=== PATIENT | female | born 1985 | race Two or more races ===

== ENCOUNTER 2016-09-14 15:50 | Inpatient (IN) | payer OTHER ==
--- NOTE | 2016-09-14 16:14 | ER Document Report ---
ED Medical Screen (RME) - General Stated Complaint: CHEST PAINS Time seen by provider: 16:12 Mode of Arrival: Ambulatory Information source: Patient Notes: 30-year-old female presents to ED with shortness of breath cough and chest pain started 3 days ago and is progressively getting worse. She is 16 weeks . States she has a history of bronchitis in the past Dr. Arce requested the EKG be repeated 15 minutes after the first one EKG was ordered 1620. I have greeted and performed a rapid initial assessment of this patient. A comprehensive ED assessment and evaluation of the patient, analysis of test results and completion of medical decision making process will be conducted by an additional ED providers. - Related Data Allergies/Adverse Reactions: No Known Allergies Allergy (Unverified 09/14/16 16:10) Physical Exam - Vital signs Vitals: Temp Pulse Resp BP Pulse Ox 97.6 F 101 H 24 H 94/58 L 99 09/14/16 16:09 09/14/16 16:09 09/14/16 16:09 09/14/16 16:09 09/14/16 16:09 Course - Vital Signs Vital signs: Temp Pulse Resp BP Pulse Ox 97.6 F 101 H 24 H 94/58 L 99 09/14/16 16:09 09/14/16 16:09 09/14/16 16:09 09/14/16 16:09 09/14/16 16:09
[2016-09-14 16:43] LABS: ABSOLUTE BASOPHILS # (AUTO) 0.1 10^3/uL (0.0-0.2); ABSOLUTE EOSINOPHILS # (AUTO) 0.4 10^3/uL (0.0-0.6); ABSOLUTE LYMPHOCYTES (AUTO) 2.5 10^3/uL (0.5-4.7); ABSOLUTE MONOCYTES (AUTO) 0.7 10^3/uL (0.1-1.4); ABSOLUTE NEUT (AUTO) 8.4 10^3/uL (1.7-8.2); BASOPHILS % (AUTO) 0.5 % (0-2); EOSINOPHILS % (AUTO) 3.2 % (0-6); HEMATOCRIT 35.2 % (36.0-47.0); HEMOGLOBIN 11.9 g/dL (12.0-15.5); HGB HCT DIFFERENCE 0.5; LYMPHOCYTES % (AUTO) 20.5 % (13-45); MEAN CORPUSCULAR HEMOGLOBIN 27.6 pg (27.0-33.4); MEAN CORPUSCULAR HGB CONC 33.7 g/dL (32.0-36.0); MEAN CORPUSCULAR VOLUME 82 fl (80-97); MONOCYTES % (AUTO) 5.5 % (3-13); SEGMENTED NEUTROPHILS % (AUTO) 70.3 % (42-78)
[2016-09-14 17:01] LABS: ALANINE AMINOTRANSFERASE 16 U/L (9-52); ALBUMIN 3.8 g/dL (3.5-5.0); ALKALINE PHOSPHATASE 79 U/L (38-126); ANION GAP 11 (5-19); ASPARTATE AMINO TRANSFERASE 14 U/L (14-36); BILIRUBIN,TOTAL 0.3 mg/dL (0.2-1.3); BLOOD UREA NITROGEN 6 mg/dL (7-20); CALCIUM 9.6 mg/dL (8.4-10.2); CARBON DIOXIDE 21 mmol/L (22-30); CHLORIDE 107 mmol/L (98-107); CREATINE KINASE 34 U/L (30-135); CREATININE RESULT 0.47 mg/dL (0.52-1.25); GLUCOSE 84 mg/dL (75-110); MAGNESIUM 1.6 mg/dL (1.6-2.3); POTASSIUM 3.7 mmol/L (3.6-5.0); SODIUM 139.4 mmol/L (137-145); TOTAL PROTEIN 7.3 g/dL (6.3-8.2)
[2016-09-14] MEDS ORDERED: ALBUTEROL SULFATE 0.083% NEB 2.5 MG/3 ML AMPUL NEB ONE ×2 (17:25→17:27)
[2016-09-14] MEDS ORDERED: LIDOCAINE 1% INJ-PF (10 MG/ML) 30 ML SDV ONE (17:25)
[2016-09-14] MEDS ORDERED: IPRATROPIUM BROMIDE 0.02% NEB 0.5 MG/2.5 ML AMPUL NEB ONE (17:26)
[2016-09-14] MEDS ORDERED: MAGNESIUM SULFATE/D5W 1 GM/100 ML RTUPB IV ONE (17:26)
[2016-09-14] MEDS ORDERED: MAGNESIUM SULFATE/D5W 100 ML IV SCH (17:30)
[2016-09-14] MEDS ORDERED: IPRATROPIUM/ALBUTEROL 0.5-2.5 MG/3 ML AMPUL NEB ONE (17:31)
[2016-09-14 17:32] LABS: CREATINE KINASE MB < 0.22 ng/mL (<4.55); TROPONIN I < 0.012 ng/mL
[2016-09-14] MEDS ORDERED: INSULIN REG, HUMAN 100 UNIT/ML 3 ML VIAL (PYX) ONE (17:34)
--- NOTE | 2016-09-14 17:42 | ER Document Report ---
ED General - General Mode of Arrival: Ambulatory TRAVEL OUTSIDE OF THE [place] IN LAST 30 DAYS: No COUNTRY TRAVELED TO/FROM: [place] - HPI Onset: Other - see HPI note Associated symptoms: Shortness of breath, Other - cough Exacerbated by: Coughing <JULITA GUPTA - Last Filed: 09/14/16 20:37> <KEVIN VINCENT - Last Filed: 09/14/16 21:23> - General Chief Complaint: Shortness Of Breath Stated Complaint: CHEST PAINS Notes: Patient is a 30 year old female presenting to the emergency department for respiratory distress. Patient states she is 16 weeks and had an ultrasound to confirm this in [place], where she is from. Patient states she has a history of some mild asthma that she has never had an serious complications with; she states she only has to use her inhalers every once in a while. Patient also has a cough and pain that radiates from her chest into her back. Patient states it hurts to breath and causes her to cough when she does so. Patient states that her symptoms started about 3-4 days prior. Patient arrived here from [place] about 2 weeks ago on 09/02/16. Patient denies any history of blood clots. Patient had a baby 5 months ago and is 16 weeks . Patient has no known allergies. (JULITA GUPTA) - Related Data Allergies/Adverse Reactions: No Known Allergies Allergy (Unverified 09/14/16 16:10) Past Medical History - General Information source: Patient - Social History Smoking Status: Never Smoker Cigarette use (# per day): No Chew tobacco use (# tins/day): No Frequency of alcohol use: None Drug Abuse: None Lives with: Family Family History: None Patient has suicidal ideation: No Patient has homicidal ideation: No Pulmonary Medical History: Reports: Hx Asthma - borderline Surgical Hx: Negative - Immunizations Hx Diphtheria, Pertussis, Tetanus Vaccination: Yes <JULITA GUPTA - Last Filed: 09/14/16 20:37> Review of Systems - Review of Systems Constitutional: No symptoms reported EENT: No symptoms reported Cardiovascular: See HPI, Chest pain Respiratory: See HPI, Cough, Short of breath Gastrointestinal: No symptoms reported Genitourinary: No symptoms reported Female Genitourinary: No symptoms reported Musculoskeletal: See HPI, Back pain Skin: No symptoms reported Hematologic/Lymphatic: No symptoms reported Neurological/Psychological: No symptoms reported -: Yes All other systems reviewed and negative <JULITA GUPTA - Last Filed: 09/14/16 20:37> Physical Exam - Vital signs Interpretation: Tachycardic - General General appearance: Other - appears uncomfortable In distress: Severe - HEENT Head: Normocephalic, Atraumatic Eyes: Normal Pupils: PERRL Mucous membranes: Moist - Respiratory Respiratory status: Respiratory distress - severe respiratory distress Chest status: Nontender Breath sounds: Decreased air movement, Productive cough - repetitive cough to the point of choking, Wheezing - faint expository wheezing Chest palpation: Normal - Cardiovascular Rhythm: Regular Heart sounds: Normal auscultation Murmur: No - Abdominal Inspection: Normal, Gravid female Distension: No distension Bowel sounds: Normal Tenderness: Nontender Organomegaly: No organomegaly - Back Back: Normal, Nontender - Extremities General upper extremity: Normal inspection, Normal ROM, Normal strength General lower extremity: Normal inspection, Normal ROM, Normal strength - Neurological Neuro grossly intact: Yes Cognition: Normal Orientation: AAOx4 Deejay Coma Scale Eye Opening: Spontaneous Caldwell Coma Scale Verbal: Oriented Caldwell Coma Scale Motor: Obeys Commands Caldwell Coma Scale Total: 15 Speech: Normal - Psychological Associated symptoms: Normal affect, Normal mood - Skin Skin Temperature: Warm Skin Moisture: Dry <JULITA GUPTA - Last Filed: 09/14/16 20:37> Course - Laboratory Result Diagrams: 09/14/16 16:20 09/14/16 16:20 - Consults Dr. Liu Time consulted: 17:43 Consulted provider: will come to ER Dr. Burnett PROGRAM SUPPORT SPECIALIST Time consulted: 18:01 <JULITA GUPTA - Last Filed: 09/14/16 20:37> - Laboratory Result Diagrams: 09/14/16 16:20 09/14/16 16:20 <KEVIN VINCENT - Last Filed: 09/14/16 21:23> - Re-evaluation Re-evalutation: 09/14/16 18:03 I personally performed the services described in the documentation, reviewed and edited the documentation which was dictated to my scribe in my presence, and it accurately records my words and actions. Patient presents straight back from the lobby with shortness of breath respiratory distress chest pain and abnormal EKG. Initial EKG obtained in the triage area shows ischemic changes anteriorly Dr. Martin asked for repeat EKG and 15 minutes repeat EKG shows the same. Patient at bedside is in severe respiratory distress tachypnea not moving a lot of air with expiratory wheezes. Coughing to the point where she was choking gagging. Concerned about a pulmonary embolus sent her over for CT PE study which is pending at this time gave her albuterol with lidocaine which significantly helped her coughing. Toxic copy of the EKG to Dr. Rodriguez who is on-call he agreed EKG is abnormal and concerning for ischemia. Patient denies any history of that. Spoke with the patient's sister who came into the room and was very aggressive and argumentative asking why we were not addressing the baby at this point. According to the patient she is visiting from [place] an ultrasound 1 month ago that 16 weeks the patient has no abdominal pain no vaginal bleeding no cramping and no emergent need to assess the child. I attempted to explain that we have to take care of the patient urgently and because the child is not 28 weeks we have to do what is necessary to stabilize the patient she is very upset about this morning so I did not do an ultrasound on the patient. Explained to her that I would not send a severe respiratory distress patient for ultrasound at 16 weeks . At this point I contacted the RUG CLEANER physician Dr. Suazo who agreed 100% better to treat the patient with whatever means necessary for the respiratory distress rule out pulmonary embolism abnormal EKG and he agrees at this point would not do any intervention to assess the baby. I'm going go ahead and order a quantitative beta hCG at this point. 09/14/16 21:21 Patient with significant improvement in breathing Dr. Hanson saw her at the bedside reviewed the EKGs and the echocardiogram which was nonacute he said that she needs be admitted with consult to him negative troponin no chest pain or shortness of breath patient is 100% improved. I talked to Dr. Suazo he did not feel from an RUG CLEANER standpoint that the patient needed to be transferred at this point and was available for consultation. Patient was significant improvement at the bedside and admitted in stable condition. (KEVIN VINCENT) - Vital Signs Vital signs: Temp Pulse Resp BP Pulse Ox 97.6 F 101 H 20 101/63 100 09/14/16 16:09 09/14/16 16:09 09/14/16 20:01 09/14/16 20:00 09/14/16 20:01 - Laboratory Laboratory results interpreted by me: 09/14/16 09/14/16 09/14/16 16:20 16:20 16:20 WBC 12.0 H Hgb 11.9 L Hct 35.2 L Absolute Neutrophils 8.4 H Carbonic Acid ABG pCO2 ABG HCO3 ABG Total CO2 Carbon Dioxide 21 L BUN 6 L Creatinine 0.47 L Beta HCG, Quant 67190.00 H 09/14/16 17:45 WBC Hgb Hct Absolute Neutrophils Carbonic Acid 0.76 L ABG pCO2 25.2 L ABG HCO3 17.0 L ABG Total CO2 17.8 L Carbon Dioxide BUN Creatinine Beta HCG, Quant - Consults Dr. Liu Reason for consultation: 09/14/16 17:[address] Liu to discuss EKG abnormalities. 09/14/16 20:[address] Liu to discuss more recommendations about patient and patient's status. (JULITA GUPTA) Dr. Burnett PROGRAM SUPPORT SPECIALIST Reason for consultation: 09/14/16 18:[address] Burnett to discuss patient and fetus care. Dr. Burnett confirms that the priority treatment is to the patient and not the fetus. (JULITA GUPTA) Critical Care Note - Critical Care Note Total time excluding time spent on procedures (mins): 75 <KEVIN VINCENT - Last Filed: 09/14/16 21:23> Discharge <JULITA GUPTA - Last Filed: 09/14/16 20:37> - Discharge Admitting Provider: Hospitalist Unit Admitted: Telemetry <KEVIN VINCENT - Last Filed: 09/14/16 21:23> - Discharge Clinical Impression: acute severe respiratory distress, ASTHMA ACUTE ATTACK, abnormal EKG, Condition: Stable Disposition: ADMITTED INPATIENT Scribe Documentation - Scribe Written by Scribscotty:: Julita Gupta 09/14/16 19:40 acting as scribe for :: Colin <JULITA GUPTA - Last Filed: 09/14/16 20:37>
[2016-09-14 18:03] LABS: ARTERIAL BLOOD BASE EXCESS -5.5 mmol/L; ARTERIAL BLOOD O2 SATURATION 96.7 % (94-98)
[2016-09-14] MEDS ORDERED: METHYLPREDNISOLONE INJ 125 MG/2 ML SDV IV ONE (18:12)
--- NOTE | 2016-09-14 20:31 | PDOC CONSULTATION ---
Consultation Consult Date: 09/14/16 Attending physician:: KEVIN VINCENT Consult reason:: Abnormal EKG History of Present Illness Patient complains of: Shortness of breath History of Present Illness: JIMBO LISA is a 30 year old female, was seen in the emergency department at the request of ER physician because of abnormal EKG. There are no prior EKG for comparison. Patient denied any prior history of heart problem, congestive heart failure, congenital heart disease. Patient has been visiting from [place]. She did complain of some bronchitis type symptoms over the last few days with cough and slight sputum production. Patient denied any history of asthma but has occasional wheezing. Patient currently 16 weeks . A CTA was negative for pulmonary embolism and any acute lung finding. Initial cardiac enzyme has been negative. Past Medical History Pulmonary Medical History: Reports: Asthma - borderline Social History Information Source: Patient Lives with: Family Smoking Status: Never Smoker - Advance Directive Resuscitation Status: Full Code Family History Family History: None Parental Family History Reviewed: Yes Children Family History Reviewed: Yes Sibling(s) Family History Reviewed.: Yes - Negative for family history of premature coronary artery disease or sudden cardiac Medication/Allergy Home Medications: Albuterol Sulfate [Proair HFA] 2 puff IH QIDP PRN 09/14/16 Vit/Iron Fumarate/FA [ Tablet] 1 each PO DAILY 09/14/16 Allergies/Adverse Reactions: No Known Allergies Allergy (Unverified 09/14/16 16:10) Review of Systems Review of Systems: Please see history of present illness and past medical history as wall. Constitutional: No fever or chills reported. Head : No recent chronic headaches, recent head injury. Eyes: No recent eye pain, diplopia, redness, discharge, acute visual changes. Ears: No recent chronic ear pain, acute hearing loss, ear discharge. Oral cavity: No recent ulcerations, bleeding, oral cavity discomfort. Neck: No recent acute neck pain reported. Hematologic: No recent easy bruising or bleeding or hematologic malignancy reported. Lymphatic: No recent lymphatic malignancy, chronic lymphadenopathy reported yet Cardiovascular system review: See history of present illness. Respiratory system review: Recent cough with slight sputum production and wheezing but no hemoptysis, blood clots in the lungs reported. Mild Shortness of breath on exertion Gastrointestinal system review: Negative for any recent acute or chronic abdominal pain, hematemesis, melena, recent change in bowel habits. Genitourinary system review: No recent acute or chronic hematuria, flank pain, UTI etc. reported. Skin system review: Negative for any recent abnormal bruising, no rash, no pruritus reported. Neurologic: No prior history of strokes, mini strokes, seizure disorder. Psychologic: No history of major psychosis or major depression reported. Musculoskeletal: Minor aches and pains reported. No acute joint swelling reported. Endocrine: No recent polyuria, polydipsia, recent heat or cold intolerance. Physical Exam Vital Signs: Temp Pulse Resp BP Pulse Ox 97.6 F 101 H 17 107/64 100 09/14/16 16:09 09/14/16 16:09 09/14/16 19:01 09/14/16 19:00 09/14/16 19:01 Intake & Output 09/13/16 09/14/16 09/15/16 06:59 06:59 06:59 Weight 58.7 kg Exam: GENERAL: well-nourished and in no acute distress. Alert and oriented x3 HEAD: Atraumatic, normocephalic. EYES: Pupils equal round and reactive to light, extraocular movements intact, sclera anicteric, conjunctiva are normal. ENT: TMs normal, nares patent, oropharynx clear without exudates. Moist mucous membranes. No oral ulcerations or bleeding gums noted NECK: supple without lymphadenopathy. Trachea is central. No cervical or axillary lymphadenopathy noted. Carotids are 2+, JVD WNL LUNGS: Respiration seems nonlabored, no significant accessory muscle action noted. Mild bilateral wheezes rales or rhonchi noted. No significant dullness noted on percussion. CHEST: Palpation of the chest wall shows no significant chest wall tenderness. No other significant abnormalities noted. HEART: [place] SENIOR ACCOUNT DIRECTOR, No PSH, 1/6 CRYSTAL aortic area, 1/6 vazquez systolic murmur mitral area, no rubs, no gallops. ABDOMEN: Soft, no significant tenderness appreciated, normoactive bowel sounds. No guarding, no rebound. No rigidity noted . No masses appreciated. EXTREMITIES: Pedal pulses are 1-2+, no calf tenderness noted. No clubbing or cyanosis.trace to 1+ pedal edema noted NEUROLOGICAL: Focused neurological exam showed no significant neurologic deficit. Normal speech, no focal weakness appreciated. PSYCH: Normal mood, normal affect. Judgment and insight within normal limits. SKIN: No significant ecchymosis, rash, ulcerations or signs of pruritus noted. MUSCULOSKELETAL EXAM: No significant joint swelling noted. Results Laboratory Results: 09/14/16 16:20 09/14/16 16:20 09/14/16 09/14/16 09/14/16 16:20 16:20 17:45 WBC 12.0 H RBC 4.30 Hgb 11.9 L Hct 35.2 L MCV 82 MCH 27.6 MCHC 33.7 RDW 14.0 Plt Count 300 Seg Neutrophils % 70.3 Lymphocytes % 20.5 Monocytes % 5.5 Eosinophils % 3.2 Basophils % 0.5 Absolute Neutrophils 8.4 H Absolute Lymphocytes 2.5 Absolute Monocytes 0.7 Absolute Eosinophils 0.4 Absolute Basophils 0.1 Carbonic Acid 0.76 L HCO3/H2CO3 Ratio 22:1 ABG pH 7.45 ABG pCO2 25.2 L ABG pO2 82.2 ABG HCO3 17.0 L ABG O2 Saturation 96.7 ABG Base Excess -5.5 FiO2 ROOM AIR Sodium 139.4 Potassium 3.7 Chloride 107 Carbon Dioxide 21 L Anion Gap 11 BUN 6 L Creatinine 0.47 L Est GFR ( Amer) > 60 Est GFR (Non-Af Amer) > 60 Glucose 84 Calcium 9.6 Magnesium 1.6 Total Bilirubin 0.3 AST 14 ALT 16 Alkaline Phosphatase 79 Total Protein 7.3 Albumin 3.8 09/14/16 09/14/16 16:20 16:20 Creatine Kinase 34 CK-MB (CK-2) < 0.22 Troponin I < 0.012 EKG Comments: Sinus rhythm noted, nonspecific ST T wave changes noted in lead 2 and aVF and precordial lead Impressions: Chest X-Ray 09/14/16 16:11 IMPRESSION: NO SIGNIFICANT RADIOGRAPHIC FINDING IN THE CHEST. Chest/Abdomen CTA 09/14/16 17:24 IMPRESSION: NORMAL CTA OF THE CHEST. NO PULMONARY EMBOLI. Assessment & Plan - Diagnosis (1) Asthma exacerbation Is this a current diagnosis for this admission?: Yes (2) Abnormal EKG Is this a current diagnosis for this admission?: Yes (3) Qualifiers: Weeks of gestation: 16 weeks Qualified Code(s): Z3A.16 - 16 weeks gestation of Is this a current diagnosis for this admission?: Yes - Notes Notes: Patient noted to have abnormal EKG, this is some concerning but pretest probability of anything cardiac going on is still low. Feel that EKG abnormality could be just persistence of juvenile T-wave changes. At this point recommend admission for observation, cardiac enzymes, stat echocardiogram. Should patient's cardiac enzymes be significantly elevated, especially troponin I, may consider transfer to tertiary care. At this point recommend aggressive treatment of asthma exacerbation. Patient also 16 weeks . Need to be cautious about medications to avoid any teratogenic effects. - Time Time Spent: 30 to 50 Minutes - CODE STATUS was discussed, patient remains full code. Surrogate decision-maker patient's sister at this point. Multiple medical problems were addressed.More than 50% of the time spent coordinating care, discussing management plans with involved caregivers. Management plans discussed with involved personnels. Medical decision making was of moderate complexity. Medications reviewed and adjusted accordingly: Yes
[2016-09-14] MEDS ORDERED: IPRATROPIUM/ALBUTEROL 0.5-2.5 MG/3 ML AMPUL NEB PRN (21:10)
[2016-09-14] MEDS ORDERED: MAGNESIUM HYDROXIDE SUSP 30 ML UDCUP PO PRN (21:12)
[2016-09-14] MEDS ORDERED: ACETAMINOPHEN 325 MG TABLET PO PRN (21:12)
[2016-09-14] MEDS: METHYLPREDNISOLONE INJ 125 MG/2 ML SDV IV SCH (22:30)
[2016-09-14] MEDS: FLUTICASONE NASAL SPRAY 50 MCG/SPRY 120 SPRAY/16 GM NASL SCH (22:30)
[2016-09-14] MEDS ORDERED: LORATADINE 10 MG TABLET PO ONE (22:30)
[2016-09-14] MEDS: NORMAL SALINE 1000 ML 1,000 ML IV SCH (22:30)
[2016-09-15] MEDS: IPRATROPIUM/ALBUTEROL 0.5-2.5 MG/3 ML AMPUL NEB SCH ×2 (01:51→07:48)
[2016-09-15] MEDS: NORMAL SALINE 1000 ML 1,000 ML IV SCH (04:23)
--- NOTE | 2016-09-15 05:14 | PDOC H&P ---
History of Present Illness Admission Date/PCP: 09/14/16 21:12 Patient complains of: Shortness of breath and wheeze History of Present Illness: JIMBO LISA is a 30 year old female with a past medical history of mild persistent exercise-induced asthma and 16 week . Patient is visiting [place] from [place] and is had 4 days of increasing asthma symptoms of shortness of breath with cough and wheezing minimally alleviated by albuterol inhaler using up to 16 times in the last 12 hours. In the emergency room she' s found to have an EKG with T-wave inversion, She feels somewhat better, denies rhinorrhea, fever or GERD and otherwise feels well. Past Medical History Cardiac Medical History: Reports: None Pulmonary Medical History: Reports: Asthma - borderline, Bronchitis EENT Medical History: Reports: None Neurological Medical History: Reports: None Endocrine Medical History: Reports: None Renal/ Medical History: Reports: None Malignancy Medical History: Reports: None GI Medical History: Reports: None Musculoskeltal Medical History: Reports: None Psychiatric Medical History: Reports: None Traumatic Medical History: Reports: None Hematology: Reports: None Infectious Medical History: Reports: None Past Surgical History Past Surgical History: Reports: None Social History Information Source: Patient Lives with: Family Smoking Status: Former Smoker - Advance Directive Resuscitation Status: Full Code Family History Family History: Other Parental Family History Reviewed: Yes Children Family History Reviewed: Yes Sibling(s) Family History Reviewed.: Yes Medication/Allergy Home Medications: Albuterol Sulfate [Proair HFA] 2 puff IH QIDP PRN 09/14/16 Vit/Iron Fumarate/FA [ Tablet] 1 each PO DAILY 09/14/16 Allergies/Adverse Reactions: No Known Allergies Allergy (Unverified 09/14/16 16:10) Review of Systems Constitutional: ABSENT: chills, fever(s), headache(s), weight gain, weight loss Eyes: ABSENT: visual disturbances Ears: ABSENT: hearing changes Cardiovascular: ABSENT: chest pain, dyspnea on exertion, edema, orthropnea, palpitations Respiratory: ABSENT: cough, hemoptysis Gastrointestinal: ABSENT: abdominal pain, constipation, diarrhea, hematemesis, hematochezia, nausea, vomiting Genitourinary: ABSENT: dysuria, hematuria Musculoskeletal: ABSENT: joint swelling Integumentary: ABSENT: rash, wounds Neurological: ABSENT: abnormal gait, abnormal speech, confusion, dizziness, focal weakness, syncope Psychiatric: ABSENT: anxiety, depression, homidical ideation, suicidal ideation Endocrine: ABSENT: cold intolerance, heat intolerance, polydipsia, polyuria Hematologic/Lymphatic: ABSENT: easy bleeding, easy bruising Physical Exam Vital Signs: Temp Pulse Resp BP Pulse Ox 98.3 F 111 H 18 100/51 L 95 09/15/16 03:09 09/15/16 03:09 09/15/16 03:09 09/15/16 03:09 09/15/16 03:09 Intake & Output 09/13/16 09/14/16 09/15/16 11:59 11:59 11:59 Weight 59.2 kg General appearance: PRESENT: no acute distress, well-developed, well-nourished Head exam: PRESENT: atraumatic, normocephalic Eye exam: PRESENT: conjunctiva pink, EOMI, PERRLA. ABSENT: scleral icterus Ear exam: PRESENT: normal external ear exam Mouth exam: PRESENT: moist, tongue midline Neck exam: ABSENT: carotid bruit, JVD, lymphadenopathy, thyromegaly Respiratory exam: PRESENT: accessory muscle use, symmetrical, tachypnea, wheezes. ABSENT: rales, rhonchi, stridor Cardiovascular exam: PRESENT: RRR. ABSENT: diastolic murmur, rubs, systolic murmur Pulses: PRESENT: normal dorsalis pedis pul Vascular exam: PRESENT: normal capillary refill GI/Abdominal exam: PRESENT: normal bowel sounds, soft. ABSENT: distended, guarding, mass, organolmegaly, rebound, tenderness Rectal exam: PRESENT: deferred Extremities exam: PRESENT: full ROM. ABSENT: calf tenderness, clubbing, pedal edema Neurological exam: PRESENT: alert, awake, oriented to person, oriented to place , oriented to time, oriented to situation, CN II-XII grossly intact. ABSENT: motor sensory deficit Psychiatric exam: PRESENT: appropriate affect, normal mood. ABSENT: homicidal ideation, suicidal ideation Skin exam: PRESENT: dry, intact, warm. ABSENT: cyanosis, rash Results Impressions: Chest X-Ray 09/14/16 16:11 IMPRESSION: NO SIGNIFICANT RADIOGRAPHIC FINDING IN THE CHEST. Chest/Abdomen CTA 09/14/16 17:24 IMPRESSION: NORMAL CTA OF THE CHEST. NO PULMONARY EMBOLI. Obstetrics Ultrasound 09/14/16 19:28 IMPRESSION: LIVING INTRAUTERINE . ESTIMATED GESTATIONAL AGE:13 WEEK 3 DAY. Trimester of : Second trimester - 13 weeks 1 day to 27 weeks 6 days. Assessment & Plan - Diagnosis (1) Asthma exacerbation Is this a current diagnosis for this admission?: YesPlan: Continue albuterol Atrovent, Solu-Medrol and when necessary magnesium, evaluate for peak flow ambulating road test prior to discharge (2) Abnormal EKG Is this a current diagnosis for this admission?: YesPlan: Possibly congenital with abnormal variant otherwise possibly secondary to excessive albuterol consult cardiology - Time Time Spent: 30 to 50 Minutes
--- NOTE | 2016-09-15 05:39 | EKG REPORT ---
SEVERITY:- ABNORMAL ECG - SINUS TACHYCARDIA ABNORMAL T, CONSIDER ISCHEMIA, DIFFUSE LEADS BORDERLINE PROLONGED QT INTERVAL : Confirmed by: Ledy Iglesias MD 15-Sep-2016 05:39:01
--- NOTE | 2016-09-15 05:39 | EKG REPORT ---
SEVERITY:- ABNORMAL ECG - SINUS RHYTHM LOW VOLTAGE IN FRONTAL LEADS ABNORMAL T, CONSIDER ISCHEMIA, DIFFUSE LEADS : Confirmed by: Ledy Iglesias MD 15-Sep-2016 05:39:11
[2016-09-15 06:08] LABS: ABSOLUTE LYMPHOCYTES (AUTO) 0.8 10^3/uL (0.5-4.7); ABSOLUTE MONOCYTES (AUTO) 0.1 10^3/uL (0.1-1.4); ABSOLUTE NEUT (AUTO) 9.3 10^3/uL (1.7-8.2); BASOPHILS % (AUTO) 0.1 % (0-2); HEMATOCRIT 33.3 % (36.0-47.0); HEMOGLOBIN 11.1 g/dL (12.0-15.5); LYMPHOCYTES % (AUTO) 7.8 % (13-45); MEAN CORPUSCULAR HEMOGLOBIN 27.5 pg (27.0-33.4); MEAN CORPUSCULAR HGB CONC 33.4 g/dL (32.0-36.0); MEAN CORPUSCULAR VOLUME 82 fl (80-97); MONOCYTES % (AUTO) 0.5 % (3-13); RED BLOOD COUNT 4.04 10^6/uL (3.72-5.28); RED CELL DISTRIBUTION WIDTH 14.1 % (11.5-14.0); SEGMENTED NEUTROPHILS % (AUTO) 91.6 % (42-78); WHITE BLOOD COUNT 10.1 10^3/uL (4.0-10.5)
[2016-09-15 06:12] LABS: ALANINE AMINOTRANSFERASE 15 U/L (9-52); ALBUMIN 3.3 g/dL (3.5-5.0); ALKALINE PHOSPHATASE 64 U/L (38-126); ANION GAP 12 (5-19); ASPARTATE AMINO TRANSFERASE 23 U/L (14-36); BILIRUBIN,TOTAL 0.4 mg/dL (0.2-1.3); BLOOD UREA NITROGEN 5 mg/dL (7-20); CALCIUM 9.1 mg/dL (8.4-10.2); CARBON DIOXIDE 15 mmol/L (22-30); CHLORIDE 110 mmol/L (98-107); GLUCOSE 239 mg/dL (75-110); POTASSIUM 4.3 mmol/L (3.6-5.0); TOTAL PROTEIN 6.6 g/dL (6.3-8.2)
[2016-09-15] MEDS: METHYLPREDNISOLONE INJ 125 MG/2 ML SDV IV SCH ×3 (06:30→22:43)
[2016-09-15] MEDS: LEVALBUTEROL HCL NEB 1.25 MG/3 ML AMPUL NEB SCH ×3 (08:15→19:58)
[2016-09-15] MEDS ORDERED: (PENDING PHARMACY ID) (Prenatal Vit/Iron Fumarate/Fa [Prenatal Tablet] 1 EACH) PO SCH (10:00)
[2016-09-15] MEDS: FLUTICASONE NASAL SPRAY 50 MCG/SPRY 120 SPRAY/16 GM NASL SCH ×2 (10:56→22:43)
[2016-09-15] MEDS: PRENATAL VITAMIN W-O CA NO5/FE FUMARATE/FA CAPSULE PO SCH (10:57)
[2016-09-15] MEDS: DOCUSATE SODIUM 100 MG CAPSULE PO SCH ×2 (10:57→17:50)
[2016-09-15] MEDS: LORATADINE 10 MG TABLET PO SCH (10:58)
--- NOTE | 2016-09-15 12:25 | XCELERA REPORT ---
[address] [address] Transthoracic Echocardiogram Report Name: JIMBO LISA Age: 30 yrs Gender: Female : 1985 Patient Status: Emergency Patient Location: ER Study Date: 09/14/2016 07:45 PM Height: 63 in Weight: 140 lb BSA: 1.7 m2 Procedure: A complete two-dimensional transthoracic echocardiogram was performed (2D, M-mode, spectral and color flow Doppler). The study was technically adequate with some images being suboptimal in quality. Reason For Study: sob abnormal ekg ana Ordering Physician: KEVIN VINCENT Performed By: Belle Mcneil Interpretation Summary The left ventricular ejection fraction is normal. There is normal left ventricular wall thickness. The left ventricle is grossly normal size. LV diastolic function could not be adequately assessed. No regional wall motion abnormalities noted. The right ventricular systolic function is normal. The right atrium is normal in size The left atrial size is normal. There is a trace amount of mitral regurgitation There is no mitral valve stenosis. No aortic regurgitation is present. There is no aortic valve stenosis There is a trace or physiologic amount of tricuspid regurgitation Right ventricular systolic pressure is at the upper limits of normal The pulmonic valve is not well visualized. The aortic root is not well visualized but is probably normal size. The inferior vena cava appeared normal and decreased > 50% with respiration (RAP 5-10 mmHg) There is no pericardial effusion. MMode/2D Measurements \T\ Calculations RVDd: 1.8 cm LVIDd: 4.6 cm FS: 42.1 % Ao root diam: 2.2 cm IVSd: 0.68 cm LVIDs: 2.7 cm EDV(Teich): 97.3 ml LVPWd: 0.70 cm ESV(Teich): 26.1 ml Ao root area: 3.8 cm2 EF(Teich): 73.1 % LA dimension: 2.2 cm Doppler Measurements \T\ Calculations MV E max heather: MV P1/2t max heather: Ao V2 max: LV V1 max P.2 cm/sec 61.2 cm/sec 151.5 cm/sec 6.2 mmHg MV A max heather: MV P1/2t: 47.6 msec Ao max PG: LV V1 max: 58.7 cm/sec 9.2 mmHg 124.4 cm/sec MV E/A: 1.0 MVA(P1/2t): 4.6 cm2 MV dec slope: 376.9 cm/sec2 MV dec time: 0.17 sec PA V2 max: TR max heather: 100.2 cm/sec 225.9 cm/sec PA max PG: TR max P.4 mmHg 4.0 mmHg Left Ventricle The left ventricle is grossly normal size. There is normal left ventricular wall thickness. The left ventricular ejection fraction is normal. LV diastolic function could not be adequately assessed. No regional wall motion abnormalities noted. Right Ventricle The right ventricle is grossly normal size. There is normal right ventricular wall thickness. The right ventricular systolic function is normal. Atria The right atrium is normal in size. The left atrial size is normal. The interatrial septum is intact with no evidence for an atrial septal defect. Mitral Valve The mitral valve is grossly normal. There is no mitral valve stenosis. There is a trace amount of mitral regurgitation. Aortic Valve The aortic valve is grossly normal. There is no aortic valve stenosis. No aortic regurgitation is present. Tricuspid Valve The tricuspid valve is not well visualized, but is grossly normal. There is no tricuspid stenosis. There is a trace or physiologic amount of tricuspid regurgitation. Right ventricular systolic pressure is at the upper limits of normal. Pulmonic Valve The pulmonic valve is not well visualized. Great Vessels The aortic root is not well visualized but is probably normal size. The inferior vena cava appeared normal and decreased > 50% with respiration (RAP 5-10 mmHg). Effusions There is no pericardial effusion. : KEVIN VINCENT > Julianna Liu
[2016-09-15] MEDS ORDERED: NORMAL SALINE 1000 ML 2,000 ML IV ONE (12:32)
[2016-09-15 14:20] LABS: APPEARANCE,URINE CLEAR; BILIRUBIN,URINE NEGATIVE (NEGATIVE); GLUCOSE, URINE >=500 mg/dL (NEGATIVE); KETONES,URINE TRACE mg/dL (NEGATIVE); LEUKOCYTE ESTERASE,URINE NEGATIVE (NEGATIVE); NITRITE,URINE NEGATIVE (NEGATIVE); PROTEIN,URINE NEGATIVE (NEGATIVE); URINE SPECIFIC GRAVITY 1.009; UROBILINOGEN,URINE NEGATIVE mg/dL (<2.0)
--- NOTE | 2016-09-15 17:22 | PDOC PROGRESS REPORT ---
Subjective Progress Note for:: 09/15/16 Subjective:: Patient reports she's feeling much better. She does report some crampy lower abdominal pain. Patient denies any vaginal bleeding. Patient reports she's had dark yellow colored urine. Patient reports her breathing is 100% improved. Patient denies chest pain, shortness of breath, abdominal pain, nausea, vomiting , fevers, chills, diarrhea, constipation, headache, new onset weakness. Physical Exam Vital Signs: Temp Pulse Resp BP Pulse Ox 98.3 F 109 H 15 100/51 L 95 09/15/16 03:09 09/15/16 07:48 09/15/16 07:48 09/15/16 03:09 09/15/16 03:09 Intake & Output 09/14/16 09/15/16 09/16/16 06:59 06:59 06:59 Intake Total 450 Output Total 2 Balance 448 Weight 59.2 kg Exam: General: Awake alert and oriented x3, no acute respiratory distress HEENT: AT/NC, PERRL, EOMI, oropharynx is moist, pink, no scleral icterus, no conjunctival injection Neck: No JVD, trachea midline Chest: Coarse right upper lobe, no overt wheezes rhonchi or rales CV: Regular rate and rhythm, normal S1 and S2, no murmur, rub, or gallop Abdomen: Soft, nontender to palpation, nondistended, active bowel sounds; no rebound, rigidity, or guarding Extremities: No cyanosis, clubbing or edema Neuro: Cranial nerves II through XII are grossly intact without focal deficits; awake alert and oriented x3 Psych: Normal mood and affect Results Laboratory Results: 09/15/16 04:13 09/15/16 04:13 09/15/16 09/15/16 04:13 04:13 WBC 10.1 RBC 4.04 Hgb 11.1 L Hct 33.3 L MCV 82 MCH 27.5 MCHC 33.4 RDW 14.1 H Plt Count 181 Seg Neutrophils % 91.6 H Lymphocytes % 7.8 L Monocytes % 0.5 L Eosinophils % 0.0 Basophils % 0.1 Absolute Neutrophils 9.3 H Absolute Lymphocytes 0.8 Absolute Monocytes 0.1 Absolute Eosinophils 0.0 Absolute Basophils 0.0 Sodium 137.0 Potassium 4.3 Chloride 110 H Carbon Dioxide 15 L Anion Gap 12 BUN 5 L Creatinine 0.50 L Est GFR ( Amer) > 60 Est GFR (Non-Af Amer) > 60 Glucose 239 H Calcium 9.1 Total Bilirubin 0.4 AST 23 ALT 15 Alkaline Phosphatase 64 Total Protein 6.6 Albumin 3.3 L Impressions: Chest X-Ray 09/14/16 16:11 IMPRESSION: NO SIGNIFICANT RADIOGRAPHIC FINDING IN THE CHEST. Chest/Abdomen CTA 09/14/16 17:24 IMPRESSION: NORMAL CTA OF THE CHEST. NO PULMONARY EMBOLI. Obstetrics Ultrasound 09/14/16 19:28 IMPRESSION: LIVING INTRAUTERINE . ESTIMATED GESTATIONAL AGE:13 WEEK 3 DAY. Trimester of : Second trimester - 13 weeks 1 day to 27 weeks 6 days. Assessment & Plan - Diagnosis (1) Asthma exacerbation Is this a current diagnosis for this admission?: YesPlan: Will decrease patient's Solu-Medrol to 60 mg IV every 8. If she is tolerant of this today that we'll transition her to oral tomorrow. No antibiotic needed at this time. Patient denies any known triggers of her asthma. Feel the patient' s current asthma exacerbation is likely secondary to prior viral URI, new allergens, and state. Will obtain peak flow. (2) Abnormal EKG Is this a current diagnosis for this admission?: YesPlan: Appreciate cardiology input. Please see their note for interpretation of EKG findings. (3) Qualifiers: Weeks of gestation: 16 weeks Qualified Code(s): Z3A.16 - 16 weeks gestation of Is this a current diagnosis for this admission?: YesPlan: At this time, will obtain UA and urine culture. Patient clinically appears to be dehydrated and we will give her 2 L of IV fluids and encourage by mouth intake of fluid. Feel that this is likely responsible for patient's crampy abdominal pain, dehydration. Patient also reports that she hasn't had a bowel movement in approximately 2 days. But that this is normal for her. Continue vitamins and Colace. Encourage by mouth intake of food. Patient counseled on the dangers of closely spaced pregnancies. - Time Time Spent with patient: 35 or more minutes Medications reviewed and adjusted accordingly: Yes - Inpatient Certification Based on my medical assessment, after consideration of the patient's comorbidities, presenting symptoms, or acuity I expect that the services needed warrant INPATIENT care.: Yes I certify that my determination is in accordance with my understanding of Medicare's requirements for reasonable and necessary INPATIENT services [42 CFR 412.3e].: Yes Medical Necessity: Need for Nebulizer Therapy and Monitoring of Response
--- NOTE | 2016-09-15 20:07 | PDOC PROGRESS REPORT ---
Subjective Progress Note for:: 09/15/16 Subjective:: Patient seems to be doing better with gradual improvement. Pt is denying any chest arm or neck discomfort. Patient denying any PND, orthopnea. Dyspnea is much improved. Patient denied any sustained palpitations, dizziness, syncope, near syncope. Patient denying any fever chills. Patient denying any other significant discomfort. Patient is maintaining sinus rhythm. Review of systems: Rest review of systems negative. Medications: Medications have been reviewed. Physical Exam Vital Signs: Temp Pulse Resp BP Pulse Ox 98.5 F 111 H 20 103/59 L 99 09/15/16 15:59 09/15/16 15:59 09/15/16 15:59 09/15/16 15:59 09/15/16 15:59 Intake & Output 09/14/16 09/15/16 09/16/16 06:59 06:59 06:59 Intake Total 450 3360 Output Total 2 200 Balance 448 3160 Weight 59.2 kg Exam: GENERAL: well-nourished and in no acute distress. Alert and oriented x3 HEAD: Atraumatic, normocephalic. EYES: Pupils equal round and reactive to light, extraocular movements intact, sclera anicteric, conjunctiva are normal. ENT: TMs normal, nares patent, oropharynx clear without exudates. Moist mucous membranes. No oral ulcerations or bleeding gums noted NECK: supple without lymphadenopathy. Trachea is central. No cervical or axillary lymphadenopathy noted. Carotids are 2+, JVD WNL LUNGS: Respiration seems nonlabored, no significant accessory muscle action noted. Few bilateral wheezes rales or rhonchi noted. No significant dullness noted on percussion. CHEST: Palpation of the chest wall shows no significant chest wall tenderness. No other significant abnormalities noted. HEART: [place] [employer]ATE, No PSH, 1/6 CRYSTAL aortic area, 1/6 vazquez systolic murmur mitral area, no rubs, no gallops. ABDOMEN: Soft, no significant tenderness appreciated, normoactive bowel sounds. No guarding, no rebound. No rigidity noted . No masses appreciated. EXTREMITIES: Pedal pulses are 1-2+, no calf tenderness noted. No clubbing or cyanosis.trace to 1+ pedal edema noted NEUROLOGICAL: Focused neurological exam showed no significant neurologic deficit. Normal speech, no focal weakness appreciated. PSYCH: Normal mood, normal affect. Judgment and insight within normal limits. SKIN: No significant ecchymosis, rash, ulcerations or signs of pruritus noted. MUSCULOSKELETAL EXAM: No significant joint swelling noted. Results Laboratory Results: 09/15/16 04:13 09/15/16 04:13 09/15/16 09/15/16 09/15/16 04:13 04:13 13:02 WBC 10.1 RBC 4.04 Hgb 11.1 L Hct 33.3 L MCV 82 MCH 27.5 MCHC 33.4 RDW 14.1 H Plt Count 181 Seg Neutrophils % 91.6 H Lymphocytes % 7.8 L Monocytes % 0.5 L Eosinophils % 0.0 Basophils % 0.1 Absolute Neutrophils 9.3 H Absolute Lymphocytes 0.8 Absolute Monocytes 0.1 Absolute Eosinophils 0.0 Absolute Basophils 0.0 Sodium 137.0 Potassium 4.3 Chloride 110 H Carbon Dioxide 15 L Anion Gap 12 BUN 5 L Creatinine 0.50 L Est GFR ( Amer) > 60 Est GFR (Non-Af Amer) > 60 Glucose 239 H Calcium 9.1 Total Bilirubin 0.4 AST 23 ALT 15 Alkaline Phosphatase 64 Total Protein 6.6 Albumin 3.3 L Urine Color STRAW Urine Appearance CLEAR Urine pH 6.0 Ur Specific [place] 1.009 Urine Protein NEGATIVE Urine Glucose (UA) >=500 H Urine Ketones TRACE H Urine Blood NEGATIVE Urine Nitrite NEGATIVE Ur Leukocyte Esterase NEGATIVE Urine WBC (Auto) 1 Urine RBC (Auto) 0 Impressions: Chest X-Ray 09/14/16 16:11 IMPRESSION: NO SIGNIFICANT RADIOGRAPHIC FINDING IN THE CHEST. Chest/Abdomen CTA 09/14/16 17:24 IMPRESSION: NORMAL CTA OF THE CHEST. NO PULMONARY EMBOLI. Obstetrics Ultrasound 09/14/16 19:28 IMPRESSION: LIVING INTRAUTERINE . ESTIMATED GESTATIONAL AGE:13 WEEK 3 DAY. Trimester of : Second trimester - 13 weeks 1 day to 27 weeks 6 days. Assessment & Plan - Diagnosis (1) Asthma exacerbation Is this a current diagnosis for this admission?: Yes (2) Abnormal EKG Is this a current diagnosis for this admission?: Yes (3) Qualifiers: Weeks of gestation: 16 weeks Qualified Code(s): Z3A.16 - 16 weeks gestation of Is this a current diagnosis for this admission?: Yes - Notes Notes: Cardiac enzymes have returned negative. Most likely patient has persistence of juvenile T-wave changes. Patient otherwise improving slowly as regards asthma exacerbation. Discussed that she might need to use a steroid inhaler for prevention of asthma attack and also may need rescue inhaler. Patient significantly improved. - Time Time with patient: 15-25 minutes - CODE STATUS was discussed, patient remains full code. Surrogate decision-maker unchanged. Multiple medical problems were addressed.
[2016-09-16] MEDS: LEVALBUTEROL HCL NEB 1.25 MG/3 ML AMPUL NEB SCH ×3 (02:19→14:43)
[2016-09-16] MEDS: NORMAL SALINE 1000 ML 1,000 ML IV PRN ×2 (04:07→11:55)
[2016-09-16 05:09] LABS: HEMOGLOBIN 10.4 g/dL (12.0-15.5); HGB HCT DIFFERENCE -0.8; MEAN CORPUSCULAR HEMOGLOBIN 27.2 pg (27.0-33.4); MEAN CORPUSCULAR HGB CONC 32.5 g/dL (32.0-36.0); MEAN CORPUSCULAR VOLUME 84 fl (80-97); RED BLOOD COUNT 3.83 10^6/uL (3.72-5.28); RED CELL DISTRIBUTION WIDTH 14.4 % (11.5-14.0)
[2016-09-16 05:13] LABS: ANION GAP 14 (5-19); BLOOD UREA NITROGEN 5 mg/dL (7-20); CALCIUM 9.4 mg/dL (8.4-10.2); CARBON DIOXIDE 17 mmol/L (22-30); CHLORIDE 109 mmol/L (98-107); CREATININE RESULT 0.45 mg/dL (0.52-1.25); GLUCOSE 170 mg/dL (75-110); POTASSIUM 4.1 mmol/L (3.6-5.0); SODIUM 140.4 mmol/L (137-145)
[2016-09-16 05:20] LABS: WHITE BLOOD COUNT 23.3 10^3/uL (4.0-10.5)
[2016-09-16 05:23] LABS: BASOPHILS % (MANUAL) 0 % (0-2); EOSINOPHILS % (MANUAL) 0 % (0-6); LYMPHOCYTES % (MANUAL) 6 % (13-45); TOTAL CELLS COUNTED 100
[2016-09-16 05:24] LABS: RBC MORPHOLOGY COMMENT NORMO-CYTIC/CHROMIC
[2016-09-16] MEDS: METHYLPREDNISOLONE INJ 125 MG/2 ML SDV IV SCH (07:50)
[2016-09-16] MEDS ORDERED: CALCIUM CARBONATE 500 MG TAB.CHEW PO PRN (08:06)
[2016-09-16] MEDS: LORATADINE 10 MG TABLET PO SCH (10:45)
[2016-09-16] MEDS: DOCUSATE SODIUM 100 MG CAPSULE PO SCH ×2 (10:46→17:49)
[2016-09-16] MEDS: PRENATAL VITAMIN W-O CA NO5/FE FUMARATE/FA CAPSULE PO SCH (10:46)
[2016-09-16] MEDS: FLUTICASONE NASAL SPRAY 50 MCG/SPRY 120 SPRAY/16 GM NASL SCH (10:47)
[2016-09-16] MEDS ORDERED: PREDNISONE 20 MG TABLET PO ONE (14:15)
--- NOTE | 2016-09-16 15:05 | PDOC PROGRESS REPORT ---
Subjective Progress Note for:: 09/16/16 Subjective:: Patient seems to be doing better with gradual improvement. Pt is denying any chest arm or neck discomfort. Patient denying any PND, orthopnea. Dyspnea is much improved. Patient denied any sustained palpitations, dizziness, syncope, near syncope. Patient denying any fever chills. Patient denying any other significant discomfort. Patient is maintaining sinus rhythm. Patient scheduled to have abdominal ultrasound today to look at intra-uterine growth Review of systems: Rest review of systems negative. Medications: Medications have been reviewed. Physical Exam Vital Signs: Temp Pulse Resp BP Pulse Ox 97.8 F 79 16 94/49 L 98 09/16/16 08:02 09/16/16 09:34 09/16/16 09:34 09/16/16 08:02 09/16/16 09:34 Intake & Output 09/15/16 09/16/16 09/17/16 06:59 06:59 06:59 Intake Total 450 3960 Output Total 2 200 Balance 448 3760 Weight 59.2 kg 64.1 kg Exam: GENERAL: well-nourished and in no acute distress. Alert and oriented x3 HEAD: Atraumatic, normocephalic. EYES: Pupils equal round and reactive to light, extraocular movements intact, sclera anicteric, conjunctiva are normal. ENT: TMs normal, nares patent, oropharynx clear without exudates. Moist mucous membranes. No oral ulcerations or bleeding gums noted NECK: supple without lymphadenopathy. Trachea is central. No cervical or axillary lymphadenopathy noted. Carotids are 2+, JVD WNL LUNGS: Respiration seems nonlabored, no significant accessory muscle action noted. Breath sounds clear to auscultation bilaterally and equal noted. No wheezes rales or rhonchi noted. No significant dullness noted on percussion. CHEST: Palpation of the chest wall shows no significant chest wall tenderness. No other significant abnormalities noted. HEART: [place] ANALYST, No PSH, 1/6 CRYSTAL aortic area, 1/6 vazquez systolic murmur mitral area, no rubs, no gallops. ABDOMEN: Soft, no significant tenderness appreciated, normoactive bowel sounds. No guarding, no rebound. No rigidity noted . No masses appreciated. EXTREMITIES: Pedal pulses are 1-2+, no calf tenderness noted. No clubbing or cyanosis.trace pedal edema noted NEUROLOGICAL: Focused neurological exam showed no significant neurologic deficit. Normal speech, no focal weakness appreciated. PSYCH: Normal mood, normal affect. Judgment and insight within normal limits. SKIN: No significant ecchymosis, rash, ulcerations or signs of pruritus noted. MUSCULOSKELETAL EXAM: No significant joint swelling noted. Results Laboratory Results: 09/16/16 04:30 09/16/16 04:30 09/16/16 09/16/16 04:30 04:30 WBC 23.3 H D RBC 3.83 Hgb 10.4 L Hct 32.0 L MCV 84 MCH 27.2 MCHC 32.5 RDW 14.4 H Plt Count 272 Seg Neutrophils % Not Reportable Lymphocytes % Not Reportable Monocytes % Not Reportable Eosinophils % Not Reportable Basophils % Not Reportable Absolute Neutrophils Not Reportable Absolute Lymphocytes Not Reportable Absolute Monocytes Not Reportable Absolute Eosinophils Not Reportable Absolute Basophils Not Reportable Sodium 140.4 Potassium 4.1 Chloride 109 H Carbon Dioxide 17 L Anion Gap 14 BUN 5 L Creatinine 0.45 L Est GFR ( Amer) > 60 Est GFR (Non-Af Amer) > 60 Glucose 170 H Calcium 9.4 Impressions: Chest X-Ray 09/14/16 16:11 IMPRESSION: NO SIGNIFICANT RADIOGRAPHIC FINDING IN THE CHEST. Chest/Abdomen CTA 09/14/16 17:24 IMPRESSION: NORMAL CTA OF THE CHEST. NO PULMONARY EMBOLI. Obstetrics Ultrasound 09/16/16 00:00 IMPRESSION: LIVING INTRAUTERINE . EGA 13 weeks 5 days. Trimester of : First - 0 to 13 weeks. Assessment & Plan - Diagnosis (1) Asthma exacerbation Is this a current diagnosis for this admission?: Yes (2) Abnormal EKG Is this a current diagnosis for this admission?: Yes (3) Qualifiers: Weeks of gestation: 16 weeks Qualified Code(s): Z3A.16 - 16 weeks gestation of Is this a current diagnosis for this admission?: Yes - Notes Notes: Asthma exacerbation: Improved. Consider transitioning to steroid inhaler and rescue inhaler. Currently on high-dose steroids. Abnormal EKG: Not a concern at this point. Intrauterine : Ultrasound report shows almost 14 week . No complications. At this point will sign off. Please reconsult if needed. - Time Time with patient: 15-25 minutes - CODE STATUS was discussed, patient remains full code. Surrogate decision-maker patient's . Multiple medical problems were addressed.
[2016-09-16 16:11] LABS: CHLAM PCR NOT DETECTED (NOT DETECT)
[2016-09-16] MEDS ORDERED: PREDNISONE 20 MG TABLET PO SCH (18:00)
[2016-09-16 19:32] VITALS: BP 102/58
--- NOTE | 2016-09-16 20:07 | PDOC CONSULTATION ---
Consultation Consult Date: 09/16/16 Attending physician:: JASON BOCANEGRA Consult reason:: 13 wks EGA w/ cramping today History of Present Illness Admission Date/PCP: 09/14/16 21:12 Patient complains of: admitted for asthma exacerbation. has been experiencing some cramping today. denies any bleeding. has had cramping throughout her previous that she was placed on bedrest [facility] through her previous History of Present Illness: JIMBO LISA is a 30 year old female, was seen in the emergency department at the request of ER physician because of abnormal EKG. There are no prior EKG for comparison. Patient denied any prior history of heart problem, congestive heart failure, congenital heart disease. Patient has been visiting from [place]. She did complain of some bronchitis type symptoms over the last few days with cough and slight sputum production. Patient denied any history of asthma but has occasional wheezing. Patient currently 16 weeks . A CTA was negative for pulmonary embolism and any acute lung finding. Initial cardiac enzyme has been negative. Past Medical History Cardiac Medical History: Reports: None Pulmonary Medical History: Reports: Asthma - borderline, Bronchitis EENT Medical History: Reports: None Neurological Medical History: Reports: None Endocrine Medical History: Reports: None Renal/ Medical History: Reports: None Malignancy Medical History: Reports: None GI Medical History: Reports: None Musculoskeltal Medical History: Reports: None Psychiatric Medical History: Reports: None Traumatic Medical History: Reports: None Infectious Medical History: Reports: None Social History Lives with: Family Smoking Status: Never Smoker - Advance Directive Resuscitation Status: Full Code Family History Family History: None Parental Family History Reviewed: Yes Children Family History Reviewed: Yes Sibling(s) Family History Reviewed.: Yes Medication/Allergy Home Medications: Albuterol Sulfate [Proair HFA] 2 puff IH QIDP PRN #1 [id number] 09/16/16 Docusate Sodium [Colace 100 mg Capsule] 100 mg PO BID #60 capsule 09/16/16 Prednisone [Deltasone 20 mg Tablet] 40 mg PO BID #21 tablet 09/16/16 Vit/Iron Fumarate/FA [ Tablet] 1 each PO DAILY #90 tablet 09/16 Allergies/Adverse Reactions: No Known Allergies Allergy (Unverified 09/14/16 16:10) Physical Exam - Physical Exam Vital Signs: Temp Pulse Resp BP Pulse Ox 98.2 F 83 20 102/58 L 98 09/16/16 19:00 09/16/16 19:00 09/16/16 19:00 09/16/16 19:00 09/16/16 19:00 Intake & Output 09/15/16 09/16/16 09/17/16 06:59 06:59 06:59 Intake Total 450 3960 480 Output Total 2 200 Balance 448 3760 480 Weight 59.2 kg 64.1 kg General appearance: PRESENT: no acute distress, cooperative GI/Abdominal exam: PRESENT: soft - nontender, nondistended Result Laboratory Results: 09/16/16 04:30 09/16/16 04:30 09/16/16 09/16/16 04:30 04:30 WBC 23.3 H D RBC 3.83 Hgb 10.4 L Hct 32.0 L MCV 84 MCH 27.2 MCHC 32.5 RDW 14.4 H Plt Count 272 Seg Neutrophils % Not Reportable Lymphocytes % Not Reportable Monocytes % Not Reportable Eosinophils % Not Reportable Basophils % Not Reportable Absolute Neutrophils Not Reportable Absolute Lymphocytes Not Reportable Absolute Monocytes Not Reportable Absolute Eosinophils Not Reportable Absolute Basophils Not Reportable Sodium 140.4 Potassium 4.1 Chloride 109 H Carbon Dioxide 17 L Anion Gap 14 BUN 5 L Creatinine 0.45 L Est GFR ( Amer) > 60 Est GFR (Non-Af Amer) > 60 Glucose 170 H Calcium 9.4 Impressions: Chest X-Ray 09/14/16 16:11 IMPRESSION: NO SIGNIFICANT RADIOGRAPHIC FINDING IN THE CHEST. Chest/Abdomen CTA 09/14/16 17:24 IMPRESSION: NORMAL CTA OF THE CHEST. NO PULMONARY EMBOLI. Obstetrics Ultrasound 09/16/16 00:00 IMPRESSION: LIVING INTRAUTERINE . EGA 13 weeks 5 days. Trimester of : First - 0 to 13 weeks. Assessment & Plan - Diagnosis (1) Qualifiers: Weeks of gestation: 16 weeks Qualified Code(s): Z3A.16 - 16 weeks gestation of Is this a current diagnosis for this admission?: Yes - Time Time Spent: 30 to 50 Minutes Critical Time spent with patient: Less than 15 minutes Medications reviewed and adjusted accordingly: Yes Anticipated discharge: Home Within: within 24 hours - Plan Summary Plan Summary: discussed adequate hydration and bowel maintenance. encouraged stool softners and high fiber diet as recent constipation may contribute to feeling of cramping. discussed normal sono with good heart tones and no evidence of hemorrage. Also discussed negative GC/Cz. advised patient to seek care from her OB at home as soon as she gets back. She indicates an appt within 2 days after her return there and I indicated this would be fine. Thank you for the consult on this very sweet patient.
--- NOTE | 2016-09-16 21:04 | PDOC DISCHARGE SUMMARY ---
General - Admit/Disc Date/PCP Admission Date/Primary Care Provider: 09/14/16 21:12 Discharge Date: 09/16/16 - Discharge Diagnosis (1) Asthma exacerbation Is this a current diagnosis for this admission?: Yes (2) Abnormal EKG Is this a current diagnosis for this admission?: Yes (3) Is this a current diagnosis for this admission?: Yes (4) Constipation Is this a current diagnosis for this admission?: Yes (5) Anemia Is this a current diagnosis for this admission?: Yes - Additional Information Resuscitation Status: Full Code Discharge Diet: Regular Discharge Activity: Activity As Tolerated Home Medications: Albuterol Sulfate [Proair HFA] 2 puff IH QIDP PRN #1 hfa.aer.ad 09/16/16 Docusate Sodium [Colace 100 mg Capsule] 100 mg PO BID #60 capsule 09/16/16 Prednisone [Deltasone 20 mg Tablet] 40 mg PO BID #21 tablet 09/16/16 Vit/Iron Fumarate/FA [ Tablet] 1 each PO DAILY #90 tablet 09/16 History of Present Illness History of Present Illness: JIMBO LISA is a 30 year old female with a past medical history of mild persistent exercise-induced asthma and 16 week . Patient is visiting [place] from [place] and is had 4 days of increasing asthma symptoms of shortness of breath with cough and wheezing minimally alleviated by albuterol inhaler using up to 16 times in the last 12 hours. In the emergency room she' s found to have an EKG with T-wave inversion, She feels somewhat better, denies rhinorrhea, fever or GERD and otherwise feels well. Hospital Course Hospital Course: In the emergency department, patient underwent echocardiogram as well as chest and abdomen CTA. Echocardiogram revealed normal EF and no valvular abnormalities. Patient had an unremarkable CTA. Patient was seen by cardiology for an abnormal EKG which reveals T-wave inversions in 23 aVF and V1 through 6. It was felt at this time the patient had apparently residual juvenile T-wave changes. Cardiac enzymes were negative 3 Patient was then referred to the hospital service for admission for asthma exacerbation. Patient was started on high-dose IV Solu-Medrol which was quickly tapered to oral therapy. Patient during her stay complained of crampy lower abdominal pain and underwent obstetric ultrasound 2 revealing an EGA of 13 5/7 weeks. Good heart tones were observed. Patient was seen by OB who felt the patient's was progressing normally. Patient's lower abdominal cramping improved with at first IV hydration and then defecation. Patient had been constipated. Patient was also mildly dehydrated and this was improved. Patient was discharged home today in stable condition. Physical Exam Vital Signs: Temp Pulse Resp BP Pulse Ox 98.2 F 80 20 102/58 L 98 09/16/16 19:00 09/16/16 19:00 09/16/16 19:00 09/16/16 19:00 09/16/16 19:00 Intake & Output 09/15/16 09/16/16 09/17/16 06:59 06:59 06:59 Intake Total 450 3960 480 Output Total 2 200 Balance 448 3760 480 Weight 59.2 kg 64.1 kg Exam: General: Awake alert and oriented x3, no acute respiratory distress HEENT: AT/NC, PERRL, EOMI, oropharynx is moist, pink, no scleral icterus, no conjunctival injection Neck: No JVD, trachea midline Chest: Clear to auscultation bilaterally CV: Regular rate and rhythm, normal S1 and S2, no murmur, rub, or gallop Abdomen: Soft, nontender to palpation, nondistended, active bowel sounds; no rebound, rigidity, or guarding Extremities: No cyanosis, clubbing or edema Neuro: Cranial nerves II through XII are grossly intact without focal deficits; awake alert and oriented x3 Psych: Normal mood and affect Results Laboratory Results: 09/16/16 04:30 09/16/16 04:30 09/16/16 09/16/16 04:30 04:30 WBC 23.3 H D RBC 3.83 Hgb 10.4 L Hct 32.0 L MCV 84 MCH 27.2 MCHC 32.5 RDW 14.4 H Plt Count 272 Seg Neutrophils % Not Reportable Lymphocytes % Not Reportable Monocytes % Not Reportable Eosinophils % Not Reportable Basophils % Not Reportable Absolute Neutrophils Not Reportable Absolute Lymphocytes Not Reportable Absolute Monocytes Not Reportable Absolute Eosinophils Not Reportable Absolute Basophils Not Reportable Sodium 140.4 Potassium 4.1 Chloride 109 H Carbon Dioxide 17 L Anion Gap 14 BUN 5 L Creatinine 0.45 L Est GFR ( Amer) > 60 Est GFR (Non-Af Amer) > 60 Glucose 170 H Calcium 9.4 Impressions: Chest X-Ray 09/14/16 16:11 IMPRESSION: NO SIGNIFICANT RADIOGRAPHIC FINDING IN THE CHEST. Chest/Abdomen CTA 09/14/16 17:24 IMPRESSION: NORMAL CTA OF THE CHEST. NO PULMONARY EMBOLI. Obstetrics Ultrasound 09/16/16 00:00 IMPRESSION: LIVING INTRAUTERINE . EGA 13 weeks 5 days. Trimester of : First - 0 to 13 weeks. Qualifiers PATEINT BEING DISCHARGED WITH ANY OF THE FOLLOWING DIAGNOSIS?: No Plan Time Spent: Greater than 30 Minutes
== END 2016-09-16 20:05 | disposition home or self-care (01) | DRG 781 ==
LOC: ER 15:50 → EH 21:12 → UNDOADMIN 21:19 → EH 21:19 → 5 09-15 00:03
PROVIDERS: ADMIT Internal Medicine; ATTEND Internal Medicine
PROC: 3E0F73Z Introduction of Anti-inflammatory into Respiratory Tract, Via Natural or Artificial Opening (ICD-10-PCS; principal; 2016-09-15)
DX: O99.512 Diseases of the respiratory system complicating pregnancy, second trimester (principal); J45.31 Mild persistent asthma with (acute) exacerbation; O99.012 Anemia complicating pregnancy, second trimester; D64.9 Anemia, unspecified; O26.892 Other specified pregnancy related conditions, second trimester; K59.00 Constipation, unspecified; O99.282 Endocrine, nutritional and metabolic diseases complicating pregnancy, second trimester; E86.0 Dehydration; R94.31 Abnormal electrocardiogram [ECG] [EKG]; Z3A.16 16 weeks gestation of pregnancy
CPT/HCPCS: 36415; 71020; 71275; 76801; 80048; 80053; 81001; 82550; 82553; 82803; 83036; 83735; 84484; 84702; 85025; 87086; 87491; 87591; 87804; 93005; 93010; 93306; 93976; 94640; 99291; 99292; J2930; J3490; J7030; J7512; J7620